=== PATIENT | female | born 1995 | race African-American/Black ===

== ENCOUNTER 2016-10-22 07:49 | Inpatient (IN) | payer OTHER ==
[~2016-10-22] VITALS: Ht 170.2 cm; Wt 88.9 kg
[2016-10-22] VITALS (11 sets, daily range): BP systolic 124–156; BP diastolic 78–91
[~2016-10-22 07:49] MED LIST: CAMILA0.35 MG PO; DIABETA2.5 MG PO; IBUPROFEN800 MG PO; VALTREX50 MG/ML PO
[2016-10-22 09:31] LABS: ADD MIUA? YES; BILIRUBIN NEGATIVE; BLOOD SMALL; COLOR STRAW ((YELLOW)); GLUCOSE (STRIP) NEGATIVE; KETONES NEGATIVE; LEUKOCYTES SMALL; NITRITE NEGATIVE; PROTEIN (STRIP) NEGATIVE; SPECIFIC GRAVITY 1.004 (1.000-1.030); UROBILINOGEN 0.2 MG/DL (0.2-1.0)
[2016-10-22 09:35] LABS: BACTERIA NONE SEEN /HPF; EPITHELIAL CELLS RARE /HPF; MUCUS TRACE /LPF; RED BLOOD CELLS 0-5 /HPF (0-5); UCUL ADDED? NO; WHITE BLOOD CELLS 0-5 /HPF (0-5)
[2016-10-22 10:23] LABS: AMPHETAMINES QUANT VALUE 0 NG/ML; BARBITUATES QUANT VALUE 0 NG/ML; BENZODIAZEPINES QUANT VALUE 0 NG/ML; BENZODIAZEPINES, URINE SCREEN Negative (200 ng/mL); OPIATES QUANTITATIVE VALUE 0 NG/ML; PHENCYCLIDINE QUANT VALUE 0 NG/ML
[2016-10-22 11:15] LABS: EOSINOPHIL (%) 0.2 % (0-5); HEMATOCRIT 37.2 % (36.0-46.0); IMMATURE GRANULOCYTE (%) 0.9 % (0.0-0.7); IMMATURE GRANULOCYTE COUNT 0.2 K/uL; INSTRUMENT ABS NEUTROPHIL CT 13.6 K/uL; LYMPHOCYTE COUNT 1.9 K/uL (1.0-2.8); MCH 25.7 PG (29.0-34.0); MCHC 30.9 G/DL (30.0-36.0); MCV 83.2 FL (83-99); MEAN PLAT.VOLUME 10.4 uM^3 (9.5-12.4); MONOCYTE COUNT 0.8 K/uL (0-0.8); NEUTROPHIL (%) 82.2 % (45-76); NEUTROPHIL COUNT 13.6 K/uL (1.8-6.4); PLATELET COUNT 219 K/uL (156-360); RBC DIS.WIDTH-CV 14.6 % (11.8-14.6); RBC DIS.WIDTH-SD 44.2 % (39-53); RED BLOOD COUNT 4.47 M/uL (3.80-5.20); WHITE BLOOD COUNT 16.6 K/uL (4.1-10.2)
[2016-10-23 07:32] LABS: BASOPHIL COUNT 0.1 K/uL (0-0.1); EOSINOPHIL (%) 0.5 % (0-5); EOSINOPHIL COUNT 0.1 K/uL (0-0.3); HEMATOCRIT 33.9 % (36.0-46.0); IMMATURE GRANULOCYTE (%) 0.7 % (0.0-0.7); IMMATURE GRANULOCYTE COUNT 0.1 K/uL; INSTRUMENT ABS NEUTROPHIL CT 8.5 K/uL; LYMPHOCYTE COUNT 3.5 K/uL (1.0-2.8); MCH 25.9 PG (29.0-34.0); MCHC 31.6 G/DL (30.0-36.0); MCV 82.1 FL (83-99); MEAN PLAT.VOLUME 10.5 uM^3 (9.5-12.4); MONOCYTE (%) 5.8 % (3-12); MONOCYTE COUNT 0.8 K/uL (0-0.8); NEUTROPHIL (%) 65.5 % (45-76); NEUTROPHIL COUNT 8.5 K/uL (1.8-6.4); PLATELET COUNT 213 K/uL (156-360); RBC DIS.WIDTH-CV 14.5 % (11.8-14.6); RBC DIS.WIDTH-SD 43.1 % (39-53); RED BLOOD COUNT 4.13 M/uL (3.80-5.20)
[2016-10-23 07:59] VITALS: BP 136/78
== END 2016-10-23 16:00 | disposition home or self-care (01) | DRG 775 ==
LOC: LDRP-OP 07:49 → 2WEST 07:50 → LDRP-OP 11-24 14:05
PROVIDERS: Advanced Practice Midwife; Obstetrics & Gynecology Obstetrics
PROC: 10E0XZZ Delivery of Products of Conception, External Approach (ICD-10-PCS; principal; 2016-10-22)
DX: O99.324 Drug use complicating childbirth (principal); O99.344 Other mental disorders complicating childbirth; F32.9 Major depressive disorder, single episode, unspecified; F41.9 Anxiety disorder, unspecified; F12.90 Cannabis use, unspecified, uncomplicated; Z3A.39 39 weeks gestation of pregnancy; Z37.0 Single live birth
CPT/HCPCS: 80306 90; 81003; 85025

== ENCOUNTER 2017-01-20 17:53 | Emergency (ER) | payer OTHER ==
[~2017-01-20] VITALS: Ht 172.7 cm; Wt 79.0 kg
[2017-01-20 18:04] VITALS: BP 145/90
[2017-01-20] MEDS ORDERED: MOTRIN800 MG PO ×2 (19:25→19:30)
[2017-01-20] MEDS ORDERED: FLEXERIL10 MG PO ×2 (19:25→19:30)
[2017-01-20] MEDS ORDERED: PREDNISONE20 MG PO (19:26)
== END 2017-01-20 20:46 | disposition home or self-care (01) ==
LOC: EME 17:53
DX: M54.5 Low back pain (principal); M54.2 Cervicalgia; V43.53XA Car driver injured in collision with pick-up truck in traffic accident, initial encounter; Y92.410 Unspecified street and highway as the place of occurrence of the external cause; F17.200 Nicotine dependence, unspecified, uncomplicated; F12.10 Cannabis abuse, uncomplicated
CPT/HCPCS: 72040; 72100; 99281; 99283; J7512